=== PATIENT | male | born 1960 | race Caucasian/White ===

== ENCOUNTER → 2016-10-17 | Outpatient (CLI) | payer MEDICARE, MEDICAID ==
--- NOTE | 2016-10-18 12:39 | REP ---
Radionuclide thyroid scan and uptake: Thyroid scan: The right and left lobes of the thyroid are enlarged, the right lobe measuring 6.2 cm craniocaudad and left lobe measuring 5.1 cm craniocaudad. No focal hot or cold lesions are identified in either the right on the left lobe. Thyroid uptake: The 24 our uptake is 54.04%. This is markedly elevated. Normal Nina 24 hours are 25 - 35%. Impression: Significantly increased radioiodine uptake. There are no focal hot or cold lesions. The right and left lobes are enlarged. The study is performed with 450 microcuries of I-123. Signed by Spencer Powell MD 10/18/2016 12:30 P
== END ==
LOC: M RAD 09:36
PROVIDERS: ATTEND Internal Medicine Endocrinology, Diabetes & Metabolism
DX: E04.9 Nontoxic goiter, unspecified (principal)
CPT/HCPCS: 78012; A9516

== ENCOUNTER → 2016-11-12 | Outpatient (CLI) | payer MEDICARE, MEDICAID | LOC: M RAD 11:39 | PROVIDERS: ATTEND Internal Medicine Endocrinology, Diabetes & Metabolism | DX: E05.00 Thyrotoxicosis with diffuse goiter without thyrotoxic crisis or storm (principal) | CPT/HCPCS: 79005; A9517 ==

== ENCOUNTER → 2019-04-26 | Outpatient (CLI) | payer MEDICARE, MEDICAID ==
[2019-04-26 11:35] LABS: FREE T4 0.95 NG/DL (0.76-1.46); THYROID STIMULATING HORMONE 26.1 uIU/ML (0.358-3.740)
== END ==
LOC: M WUC 09:50
PROVIDERS: ATTEND Nurse Practitioner Family
DX: E89.0 Postprocedural hypothyroidism (principal)

== ENCOUNTER → 2019-06-16 | Outpatient (CLI) | payer MEDICARE, MEDICAID ==
[2019-06-16 10:23] LABS: FREE T4 1.03 NG/DL (0.76-1.46); THYROID STIMULATING HORMONE 17.1 uIU/ML (0.358-3.740)
== END ==
LOC: M WUC 08:51
PROVIDERS: ATTEND Nurse Practitioner Family
DX: E89.0 Postprocedural hypothyroidism (principal)

== ENCOUNTER → 2019-08-18 | Outpatient (CLI) | payer MEDICARE, MEDICAID ==
[2019-08-18 12:41] LABS: FREE T4 1.23 NG/DL (0.76-1.46); THYROID STIMULATING HORMONE 1.44 uIU/ML (0.358-3.740)
== END ==
LOC: M WUC 08:39
PROVIDERS: ATTEND Nurse Practitioner Family
DX: E89.0 Postprocedural hypothyroidism (principal)

== ENCOUNTER → 2022-04-28 | Outpatient (CLI) | payer MEDICARE, MEDICAID | LOC: M LABSMTC 10:11 | PROVIDERS: ATTEND Anesthesiology | DX: Z20.822 Contact with and (suspected) exposure to COVID-19 (principal) ==

== ENCOUNTER → 2022-04-30 | Outpatient (CLI) | payer MEDICARE, MEDICAID ==
[~2022-04-30] MED LIST: LIDOCAINE 2% 100MG/5ML SDV (FOR ANES.) ONE; PROHANCE 279.3MG/ML 15ML VIAL As Ordered ONE; propofoL 200 MG/20 ML VIAL ONE
[2022-04-30 13:15] VITALS: BP 111/71
== END ==
LOC: M RAD 09:56
PROVIDERS: ATTEND Registered Nurse
DX: E05.90 Thyrotoxicosis, unspecified without thyrotoxic crisis or storm (principal)
CPT/HCPCS: 70543; 70553; A9576